=== PATIENT | male | born 1965 | race Two or more races ===

== ENCOUNTER 2019-07-03 11:19 | Outpatient (CLI) | payer OTHER ==
[2019-07-05] MEDS ORDERED: ASPIR 8181 MG PO ×2 (10:09→10:11)
[2019-07-05] MEDS ORDERED: FLAX OIL1000 MG PO (10:10)
== END 2019-07-05 06:35 | disposition home or self-care (01) ==
LOC: RAD 11:19
DX: K64.5 Perianal venous thrombosis (principal); K64.8 Other hemorrhoids

== ENCOUNTER 2019-07-10 05:45 | Day surgery (SDC) | payer OTHER ==
[~2019-07-10 05:45] MED LIST: ASPIR 8181 MG PO; FLAX OIL1000 MG PO
[2019-07-10] MEDS ORDERED: PERCOCET 5-3251 EACH PO (08:53)
[2019-07-10] MEDS ORDERED: RECTICARE30 GM TOP (08:54)
== END 2019-07-10 16:40 | disposition home or self-care (01) ==
LOC: CIR.AMB 05:45
PROVIDERS: ATTEND Surgery
DX: K64.8 Other hemorrhoids (principal)